=== PATIENT | male | born 1950 | race Caucasian/White ===

== ENCOUNTER 2018-12-20 11:55 | Outpatient (CLI) | payer BC ==
--- NOTE | 2018-12-20 13:58 | Diagnostic Imaging Report ---
Indication: Cough Technique: 2 views of the chest Comparison: None Findings: Atelectatic changes are seen at both lung bases. Lungs and pleural spaces are otherwise clear. The heart size is normal. The aorta is tortuous Impression: Bilateral basilar atelectasis. No acute process otherwise
== END 2018-12-20 13:55 | disposition home or self-care (01) ==
LOC: RAD 11:55
DX: Z01.818 Encounter for other preprocedural examination (principal); Z01.812 Encounter for preprocedural laboratory examination; R05 Cough; J98.11 Atelectasis
CPT/HCPCS: 71046